=== PATIENT | female | born 2000 | race African-American/Black ===

== ENCOUNTER 2021-03-09 15:16 | Inpatient (IN) | payer OTHER ==
[2021-03-09] MEDS ORDERED: CEFTRIAXONE 1,000 MG in DEXTROSE 5%-WATER - 50 ML IVPB ONE (16:36)
[2021-03-09] MEDS ORDERED: CEFAZOLIN 1 GM/D5W 1 GM/50 ML BAG ONE (17:01)
[2021-03-09] MEDS ORDERED: SODIUM CHLORIDE 1,000 ML IV STA (17:35)
[2021-03-09 17:48] LABS: BASO % 0.3 % (0-2.0); HEMATOCRIT 33.3 % (32.4-45.2); HEMOGLOBIN 11.6 GM/dL (10.7-15.3); LYMPH % 7.6 % (8-40); MCH 33.6 pg (25.7-33.7); MONO % 13.8 % (3.8-10.2); NEUT % 78.3 % (42.8-82.8); PLATELET COUNT 271 10^3/uL (134-434); RBC 3.47 M/mm3 (3.60-5.2); RDW 12.8 % (11.6-15.6)
[2021-03-09 17:58] LABS: CALCIUM 8.4 mg/dL (8.5-10.1)
[2021-03-09 17:59] LABS: ALBUMIN 2.8 g/dl (3.4-5.0); BLOOD UREA NITROGEN 4.9 mg/dL (7-18); MAGNESIUM 2.1 mg/dL (1.8-2.4)
[2021-03-09 18:02] LABS: CREATININE 0.8 mg/dL (0.55-1.3)
[2021-03-09 18:03] LABS: BILIRUBIN,TOTAL 0.2 mg/dL (0.2-1); TOT PROT 6.8 g/dl (6.4-8.2)
[2021-03-09] MEDS ORDERED: POTASSIUM CHLORIDE ORAL LIQUID 20 MEQ/15 ML PO ONE (18:05)
[2021-03-09] MEDS ORDERED: POTASSIUM CHLORIDE TABS 20 MEQ TABLET.ER (FP) PO ONE (18:14)
[2021-03-09] MEDS ORDERED: ACETAMINOPHEN 325 MG TABLET (FP) PO PRN (22:50)
[2021-03-09 23:13] LABS: HIV INTERPRETATION NEGATIVE (NEGATIVE)
[2021-03-10 00:01] VITALS: BMI 32.3
[2021-03-10] MEDS: SODIUM CHLORIDE 1,000 ML IV SCH (02:49)
[2021-03-10 08:43] LABS: HEMATOCRIT 34.3 % (32.4-45.2); HEMOGLOBIN 11.6 GM/dL (10.7-15.3); MCHC 33.8 g/dl (32.0-36.0); MEAN CELL VOLUME 97.7 fl (80-96); MEAN PLT VOLUME 8.2 fl (7.5-11.1); PLATELET COUNT 297 10^3/uL (134-434); RBC 3.51 M/mm3 (3.60-5.2); RDW 13.1 % (11.6-15.6); WHITE BLOOD COUNT 14.1 K/mm3 (4.0-10.0)
[2021-03-10 09:06] LABS: BLOOD UREA NITROGEN 4.3 mg/dL (7-18); CALCIUM 8.7 mg/dL (8.5-10.1); MAGNESIUM 2.1 mg/dL (1.8-2.4)
[2021-03-10 09:07] LABS: ALBUMIN 2.8 g/dl (3.4-5.0)
[2021-03-10 09:09] LABS: CREATININE 0.7 mg/dL (0.55-1.3)
[2021-03-10 09:10] LABS: PHOSPHOROUS 3.6 mg/dL (2.5-4.9)
[2021-03-10 09:11] LABS: BILIRUBIN,TOTAL 0.3 mg/dL (0.2-1); TOT PROT 6.5 g/dl (6.4-8.2)
[2021-03-10] MEDS ORDERED: cefTRIAXone SODIUM 1 GM VIAL ONE (09:21)
[2021-03-10] MEDS ORDERED: DEXTROSE 5%-WATER - 50 ML IVPB ONE (09:21)
[2021-03-10] MEDS: CEFTRIAXONE 1 GM in DEXTROSE 5%-WATER - 50 ML IVPB SCH (09:26)
[2021-03-10] MEDS ORDERED: PT OWN MED DRAWER 7, Y5N ONE (14:24)
[2021-03-10] MEDS: PRENATAL VITAMINS W/ FOLIC ACID TABLET (FP) PO SCH (15:30)
[2021-03-10 21:58] LABS: COCAINE, UR NEGATIVE (NEGATIVE); URINE AMPHETAMINES NEGATIVE (NEGATIVE); URINE BARBITURATES NEGATIVE (NEGATIVE)
[2021-03-10 21:59] LABS: PHENCYCLIDINE,URINE NEGATIVE (NEGATIVE)
[2021-03-10 22:00] LABS: METHADONE, UR NEGATIVE (NEGATIVE); OPIATES, URI NEGATIVE (NEGATIVE); URINE BENZODIAZEPINES NEGATIVE (NEGATIVE)
[2021-03-11] MEDS: SODIUM CHLORIDE 1,000 ML IV SCH (04:11)
[2021-03-11 07:31] LABS: BASO % 0.4 % (0-2.0); EOS % 1.8 % (0-4.5); HEMATOCRIT 30.4 % (32.4-45.2); HEMOGLOBIN 10.5 GM/dL (10.7-15.3); LYMPH % 22.5 % (8-40); MCH 33.9 pg (25.7-33.7); MCHC 34.5 g/dl (32.0-36.0); MEAN CELL VOLUME 98.2 fl (80-96); MEAN PLT VOLUME 8.3 fl (7.5-11.1); MONO % 12.8 % (3.8-10.2); NEUT % 62.5 % (42.8-82.8); PLATELET COUNT 289 10^3/uL (134-434); RBC 3.09 M/mm3 (3.60-5.2); RDW 13.1 % (11.6-15.6)
[2021-03-11 07:53] LABS: ALBUMIN 2.4 g/dl (3.4-5.0); CALCIUM 8.1 mg/dL (8.5-10.1)
[2021-03-11 07:54] LABS: BLOOD UREA NITROGEN 5.1 mg/dL (7-18); MAGNESIUM 2.1 mg/dL (1.8-2.4)
[2021-03-11 07:57] LABS: CREATININE 0.7 mg/dL (0.55-1.3); PHOSPHOROUS 4.8 mg/dL (2.5-4.9)
[2021-03-11 07:58] LABS: BILIRUBIN,TOTAL 0.3 mg/dL (0.2-1); TOT PROT 5.7 g/dl (6.4-8.2)
[2021-03-11] MEDS ORDERED: cefTRIAXone SODIUM 1 GM VIAL ONE (09:34)
[2021-03-11] MEDS ORDERED: DEXTROSE 5%-WATER - 50 ML IVPB ONE (09:34)
[2021-03-11] MEDS ORDERED: PT OWN MED DRAWER 7, Y5N ONE (09:34)
[2021-03-11] MEDS: PRENATAL VITAMINS W/ FOLIC ACID TABLET (FP) PO SCH (09:37)
[2021-03-11] MEDS: CEFTRIAXONE 1 GM in DEXTROSE 5%-WATER - 50 ML IVPB SCH (09:37)
[2021-03-11 11:48] VITALS: BP 110/42; PULSE 64; TEMP 98.4
[2021-03-11 16:13] LABS: HEP B CORE AB, TOT Negative (Negative)
== END 2021-03-11 14:19 | disposition left against medical advice (07) | DRG 566 ==
LOC: JER 15:16 → JERBED 18:20 → J8W 22:59
DX: O23.01 Infections of kidney in pregnancy, first trimester (principal); B96.89 Other specified bacterial agents as the cause of diseases classified elsewhere; Z3A.08 8 weeks gestation of pregnancy; E87.6 Hypokalemia; F12.20 Cannabis dependence, uncomplicated; R78.81 Bacteremia; O26.891 Other specified pregnancy related conditions, first trimester; F17.210 Nicotine dependence, cigarettes, uncomplicated; O99.211 Obesity complicating pregnancy, first trimester; D72.829 Elevated white blood cell count, unspecified; J45.909 Unspecified asthma, uncomplicated
CPT/HCPCS: 36415; 71045-TC-FY; 76801-TC; 80053; 80307; 81003; 82550; 82728; 83605; 83615; 83690; 83735; 84100; 84484; 84702; 84703; 85025; 85027; 85379; 85610; 85730; 86140; 86704; 86706; 86707; 86708; 86709; 87040; 87086; 87186; 87340; 87389; 87491; 87591; 87804; 93005; 93010; 99285-25; C9803; J0131; U0003; U0005